=== PATIENT | male | born 1975 | race Two or more races ===

== ENCOUNTER 2019-06-27 13:08 | Emergency (ER) | payer OTHER ==
[~2019-06-27] VITALS: Ht 175.3 cm; Wt 91.6 kg
--- NOTE | 2019-06-27 13:30 | NUR ---
Pt very anxious/restless/agitated/uncomfortable. Safety and comfor measures initiated- Made aware of plan of care.
[2019-06-27] MEDS ORDERED: MORPHINE SULFATE INJ 2 MG/ML DISP.SYRIN IV ONE ×2 (14:00→18:00)
[2019-06-27] MEDS ORDERED: ONDANSETRON HCL/PF 4 MG/2 ML VIAL IVP ONE (14:00)
[2019-06-27] MEDS ORDERED: ONDANSETRON HCL/PF 4 MG/2 ML VIAL ONE (14:03)
[2019-06-27] MEDS ORDERED: MORPHINE SULFATE INJ 4 MG/ML DISP.SYRIN ONE ×2 (14:04→18:26)
[2019-06-27 14:07] LABS: BASOPHILS # (AUTO) 0.1 /CMM (0.0-0.2); BASOPHILS % (AUTO) 0.7 % (0.0-2.0); EOSINOPHILS % (AUTO) 0.6 % (0.0-6.0); HEMATOCRIT 55 % (39-51); LYMPHOCYTES # (AUTO) 2.2 /CMM (0.8-4.8); LYMPHOCYTES % (AUTO) 17.6 % (20.0-44.0); MEAN CORPUSCULAR HGB CONC 33 g/dl (31.0-36.0); MEAN CORPUSCULAR VOLUME 89 fL (80-96); MONOCYTES # (AUTO) 0.8 /CMM (0.1-1.30); MONOCYTES % (AUTO) 6.6 % (2.0-12.0); NEUTROPHILS # (AUTO) 9.3 /CMM (1.8-8.9); NEUTROPHILS % (AUTO) 74.5 % (43.0-81.0); PLATELET COUNT (AUTO) 269 /CMM (150-450); RED BLOOD CELL COUNT(AUTO) 6.13 MIL/uL (4.5-6.0); WHITE BLOOD COUNT (AUTO) 12.5 K/uL (4.3-11.0)
[2019-06-27 14:30] LABS: CALCIUM, SERUM 9.2 mg/dL (8.5-10.1); CREATININE 1.3 mg/dL (0.6-1.3); POTASSIUM 3.8 mmol/L (3.5-5.1)
[2019-06-27 14:37] LABS: ALBUMIN 4.2 g/dL (3.4-5.0); BILIRUBIN,DIRECT 0.1 mg/dL (0.0-0.2); BILIRUBIN,TOTAL 0.7 mg/dL (0.2-1.0); TOTAL PROTEIN, SERUM 8.2 g/dL (6.4-8.2)
[2019-06-27 14:41] LABS: LYMPHOCYTES % (MANUAL) 14 % (16-48); MONOCYTES % (MANUAL) 4 % (0-11.0); NEUTROPHILS % (MANUAL) 80 (42-76)
[2019-06-27 14:46] LABS: EOSINOPHILS % (MANUAL) 2 % (0-4)
[2019-06-27 15:56] LABS: APPEARANCE,URINE Turbid (CLEAR); BILIRUBIN,URINE SMALL (NEGATIVE); BLOOD, URINE Small Ery/uL (NEGATIVE); COLOR,URINE Yellow (YELLOW); KETONES,URINE 15 (NEGATIVE); LEUKOCYTE ESTERASE ,URINE Negative (NEGATIVE); NITRITE, URINE Negative (NEGATIVE); PROTEIN,URINE Negative (NEGATIVE); UGLUCOSE Negative (NEGATIVE); UROBILINOGEN,URINE 0.2 EU/dL (0.2)
[2019-06-27] MEDS ORDERED: LEVOFLOXACIN (500MG) 500 MG TABLET PO ONE (16:00)
[2019-06-27] MEDS ORDERED: LEVOFLOXACIN (500MG) 500 MG TABLET ONE (16:13)
[2019-06-27 16:17] LABS: RBC,URINE 0-2 /HPF (0-2); WBC,URINE 0-2 /HPF (0-3)
[2019-06-27 16:18] LABS: BACTERIA,URINE Few /HPF (None Seen); SQUAMOUS EPITHELIAL CELL,UR Rare /HPF (None Seen); URINE AMORPHOUS URATE Many /HPF (None Seen)
--- NOTE | 2019-06-27 16:23 | NUR ---
Ablr to doze on/off NO obvious distress. Await MD re-evaluation
[2019-06-27] MEDS ORDERED: CT SWABBABLE VALVE TRANS SET 1 EA INFUS.SET MC ONE (16:59)
[2019-06-27] MEDS ORDERED: IV NS 0.9% 250 ML IV ONE (16:59)
[2019-06-27] MEDS ORDERED: IOHEXOL-300 100 ML VIAL IV ONE (16:59)
--- NOTE | 2019-06-27 17:36 | NUR ---
Urology- Lashonda VERDE - notified via secured text message
--- NOTE | 2019-06-27 17:38 | NUR ---
Dr. Gallego is not available
--- NOTE | 2019-06-27 18:03 | NUR ---
[facility] CALLED PRESENTED TO [facility]; CLINICALS AND FACESHEET FAXED TO [phone]
--- NOTE | 2019-06-27 19:21 | NUR ---
Pt aware of pending transfer through [facility] for higher level of care/urologist. Concurs with plan. Nurse Knowledge Exchange w/RN-Keeshar for continuity of care
--- NOTE | 2019-06-27 19:24 | NUR ---
FOLLOWED UP WITH [facility] AND UROLOGIST HAD NOT FOLLOWED UP YET.
[2019-06-27] MEDS ORDERED: IV NS 0.9% 1,000 ML BAG IV ONE (19:30)
--- NOTE | 2019-06-27 20:36 | NUR ---
[facility] UNABLE TO ACCEPT PT AT THIS TIME.
--- NOTE | 2019-06-27 21:02 | NUR ---
CALLED [facility] FOR TRANSFER FOR HIGHER LEVEL OF CARE, HOSPITAL UNABLE TO ACCEPT PT AT THIS TIME.
--- NOTE | 2019-06-27 21:13 | NUR ---
CALLED [facility]. SPOKE TO YOGESH HELP DESK OPERATOR. INFORMATION FAXED OVER. SHE WILL CALL BACK WITH [facility] ACQUISITION PROGRAM MANAGER UROLOGIST.
--- NOTE | 2019-06-27 23:00 | NUR ---
PER [place] ([facility]). PAGED UROLOGIST 2ND TIME. UNABLE TO OBTAIN AT THIS TIME. WILL KEEP PAGING
--- NOTE | 2019-06-27 23:37 | NUR ---
UROLOGY, DR. CARTER ([facility]) SPOKE TO DR. CAMPOS REGARDING PLAN OF CARE.
[2019-06-28 00:05] VITALS: BP 122/89
== END 2019-06-28 00:05 | disposition home or self-care (01) ==
LOC: ER 13:13
DX: N45.1 Epididymitis (principal); I25.2 Old myocardial infarction; F17.200 Nicotine dependence, unspecified, uncomplicated; Z60.2 Problems related to living alone
CPT/HCPCS: 36415; 74177; 76870; 80048; 80076; 81001; 83690; 85025; 87491; 87591; 96374; 96375; 96376; 99284; J2270 ×2; J2405; J7030; J7050; Q9967; 81000-TC